=== PATIENT | female | born 1975 | race Asian ===

== ENCOUNTER 2021-05-29 01:26 | Inpatient (IN) | payer OTHER ==
[~2021-05-29] VITALS: Ht 152.4 cm; Wt 48.7 kg
[2021-05-29] MEDS ORDERED: amLODIPine BESYLATE 5 MG TAB PO ONE (02:00)
[2021-05-29 02:33] LABS: Basophils # (auto) 0 10 ^3/uL (0-0.2); Basophils % (auto) 0.6 % (0.0-2.0); Eosinophils # (auto) 0.1 10 ^3/uL (0-0.8); Eosinophils % (auto) 0.9 % (0.0-7.0); Hematocrit 40.8 % (36.0-46.0); Lymphocytes # (auto) 1.7 10 ^3/uL (0.4-5.4); Lymphocytes % (auto) 23.4 % (10.0-50.0); Mean Corpuscular Hemoglobin 32.3 pg (28.0-32.0); Mean Corpuscular Hgb Conc. 34.3 g/dL (32.0-36.0); Mean Corpuscular Volume 94.2 fL (80.0-100.0); Monocytes # (auto) 0.5 10 ^3/uL (0-1.3); Monocytes % (auto) 7.4 % (0.0-12.0); Neutrophils # (auto) 4.9 10 ^3/uL (1.6-8.6); Neutrophils % (auto) 67.7 % (37.0-80.0); Nucleated Red Blood Cells % 0.1 %; Red Blood Cells 4.33 10^6/uL (4.0-5.20); Red Cell Distribution Width 12.8 % (11.8-14.3); White Blood Cell 7.2 10^3/uL (4.4-10.8)
[2021-05-29 02:54] LABS: Albumin 3.7 g/dL (3.4-5.0); BUN/Creatinine Ratio 16.9; Magnesium 2.4 mg/dL (1.6-2.6); Potassium 3.8 mmol/L (3.5-5.1)
[2021-05-29 02:57] LABS: Bilirubin, Total 0.3 mg/dL (0.2-1.0); Total Protein 7.8 g/dL (6.4-8.2)
[2021-05-29] MEDS ORDERED: ASPirin 81 mg TAB PO ONE ×2 (04:00→04:15)
[2021-05-29] MEDS ORDERED: LABETALOL HCL 5 MG/ML 4ML SYRINGE IV ONE (08:15)
[2021-05-29 08:46] LABS: Urine WBC None Seen /hpf (0 - 5)
[2021-05-29 08:57] LABS: Urine Bacteria FEW /hpf (None Seen); Urine Blood 1+ /uL (Negative); Urine Specific Gravity 1.008 (1.001-1.035)
[2021-05-29] MEDS ORDERED: NITROGLYCERIN 0.4 MG SL TAB SL PRN (12:30)
[2021-05-29] MEDS ORDERED: MORPHINE SULFATE INJECTION 2 MG/ML SYRG IV PRN ×2 (12:30→13:00)
[2021-05-29] MEDS ORDERED: ENOXAPARIN SOD 60 MG/0.6 ML SYRINGE SC ONE (13:00)
[2021-05-29] MEDS ORDERED: LACTULOSE 20Gm/30ML SOLN PO PRN (13:00)
[2021-05-29] MEDS ORDERED: ACETAMINOPHEN 500 MG TAB PO PRN (13:00)
[2021-05-29] MEDS ORDERED: TEMAZEPAM 15 MG CAP PO PRN (13:00)
[2021-05-29] MEDS ORDERED: PROMETHAZINE HCL 25 MG/ML 1ML IV PRN (13:00)
[2021-05-29] MEDS ORDERED: traMADol HCL 50 MG TAB PO PRN (13:00)
[2021-05-29 13:14] LABS: Beta HCG, Quantitative < 1 mlU/mL (1-3); Thyroid Stimulating Hormone 1.05 uIU/mL (0.358-3.74)
[2021-05-29] MEDS: SODIUM CHLOR 0.9% PF (SALINE LOCK) 10ML VIAL/SYR IV SCH (14:07)
[2021-05-29 23:42] LABS: Alcohol, Urine < 3.0 mg/dL (0-10); Amphetamine Screen, Urine NEGATIVE (NEGATIVE); Barbiturate Scree,Urine NEGATIVE (NEGATIVE); Benzodiazephine Screen, Urine NEGATIVE (NEGATIVE); Cannabinoid Screen, Urine NEGATIVE (NEGATIVE); Cocaine Screen, Urine NEGATIVE (NEGATIVE); Opiate Scree,Urine NEGATIVE (NEGATIVE); Phencyclidine Screen, Urine NEGATIVE (NEGATIVE)
[2021-05-30] MEDS: SODIUM CHLOR 0.9% PF (SALINE LOCK) 10ML VIAL/SYR IV SCH ×4 (00:04→21:30)
[2021-05-30] MEDS: ATORVASTATIN 20 MG TAB PO SCH ×2 (00:05→21:30)
[2021-05-30] MEDS: METOPROLOL TARTRATE 25 MG TAB PO SCH ×3 (00:05→21:31)
[2021-05-30] MEDS: ENOXAPARIN SOD 60 MG/0.6 ML SYRINGE SC SCH ×2 (01:16→14:32)
[2021-05-30] MEDS ORDERED: LOVA20TA4 PO (04:48)
[2021-05-30 05:25] VITALS: BP 148/105
[2021-05-30 08:00] VITALS: BP 149/96
[2021-05-30 09:13] VITALS: BP 149/96
[2021-05-30] MEDS ORDERED: NITROGLYCERIN 0.2MG/HR TOPICAL PATCH TD SCH (10:00)
[2021-05-30] MEDS ORDERED: ENALAPRIL MALEATE 2.5 MG TAB PO SCH (10:00)
[2021-05-30] MEDS ORDERED: ENALAPRIL MALEATE 10 MG TAB PO ONE (11:00)
[2021-05-30 11:07] LABS: Cholesterol 223 mg/dL (< 200); HDL Cholesterol 86 mg/dL (40-59); LDL Cholesterol 115 mg/dL (< 100); Triglycerides 110 mg/dL (< 150)
[2021-05-30] MEDS: ASPirin 81 mg TAB PO SCH (11:32)
[2021-05-30 13:00] VITALS: BP 147/89
[2021-05-30 16:51] VITALS: BP 113/77
[2021-05-30 22:00] VITALS: BP 138/88
[2021-05-31] MEDS: ENOXAPARIN SOD 60 MG/0.6 ML SYRINGE SC SCH ×2 (01:33→13:18)
[2021-05-31 05:30] VITALS: BP 139/82
[2021-05-31] MEDS: SODIUM CHLOR 0.9% PF (SALINE LOCK) 10ML VIAL/SYR IV SCH ×2 (06:19→14:00)
[2021-05-31 06:38] LABS: Anion Gap 8 (5-15); Calcium 8.6 mg/dL (8.5-10.1); Carbon Dioxide 20 mmol/L (21-32); Chloride 108 mmol/L (98-107); Glucose 84 mg/dL (74-106); Magnesium 2.4 mg/dL (1.6-2.6); Potassium 4.5 mmol/L (3.5-5.1); Sodium 136 mmol/L (136-145)
[2021-05-31 06:41] LABS: Blood Urea Nitrogen 18 mg/dL (7-18); GFR African American 97 mL/min; GFR Non-African American 80 mL/min
[2021-05-31 09:00] VITALS: BP 134/99
[2021-05-31] MEDS: METOPROLOL TARTRATE 25 MG TAB PO SCH (10:00)
[2021-05-31] MEDS ORDERED: ENALAPRIL MALEATE 10 MG TAB PO SCH (10:00)
[2021-05-31] MEDS: ASPirin 81 mg TAB PO SCH (10:01)
[2021-05-31] MEDS ORDERED: POM (10:08)
[2021-05-31] MEDS ORDERED: AMLO-483 PO (10:08)
[2021-05-31] MEDS ORDERED: MET25T PO (12:22)
[2021-05-31 13:13] VITALS: BP 126/78
[2021-05-31 13:56] VITALS: BP 126/78
== END 2021-05-31 14:15 | disposition home or self-care (01) | DRG 199 ==
LOC: ER 01:28 → EDBD 01:28 → TELE 12:16 → TELE-WESTW 23:51
PROVIDERS: ADMIT Internal Medicine; ATTEND Internal Medicine
DX: I16.0 Hypertensive urgency (principal); I21.A1 Myocardial infarction type 2; E78.5 Hyperlipidemia, unspecified; I10 Essential (primary) hypertension; Z20.822 Contact with and (suspected) exposure to COVID-19; Z91.19 Patient's noncompliance with other medical treatment and regimen
CPT/HCPCS: 36415; 71045; 80048; 80053; 80061; 80307; 81001; 82550; 83735; 83880; 84443; 84484; 84702; 85025; 85379; 85652; 86141; 87426; 93005; 93306; 96372; 96374; G0378; J3490